=== PATIENT | female | born 1960 | race African-American/Black ===

== ENCOUNTER 2019-04-16 14:16 | Emergency (ER) | payer BC ==
[2019-04-16 14:43] VITALS: BMI 37.6
--- NOTE | 2019-04-16 14:47 | PDOC ---
Rapid Medical Evaluation Chief Complaint: Syncope/Near Syncope Time Seen by Provider: 04/16/19 14:40 Medical Evaluation: Allergies Allergy/AdvReac Type Severity Reaction Status Date / Time Penicillins Allergy Intermediate Hives Verified 04/16/19 14:38 Vital Signs Temp Pulse Resp BP Pulse Ox 97.8 F 100 H 18 120/74 100 04/16/19 14:38 04/16/19 14:38 04/16/19 14:38 04/16/19 14:38 04/16/19 14:38 04/16/19 14:46 I have performed a brief in-person evaluation of this patient. The patient presents with a chief complaint of:R arm pain after fall from bed yesterday. Was using ext yesterday but reported pain today. No head injury per parent Pertinent physical exam findings:NAD, no swelling/deformity on exam, FROMI to RUE I have ordered the following:nothing The patient will proceed to the ED for further evaluation Discharge Disposition - Diagnosis Arm injury Qualifiers: Encounter type: initial encounter Laterality: right Qualified Code(s): S49.91XA - Unspecified injury of right shoulder and upper arm, initial encounter - Referrals - Patient Instructions - Post Discharge Activity
--- NOTE | 2019-04-16 14:52 | PDOC ---
Rapid Medical Evaluation Chief Complaint: Syncope/Near Syncope Time Seen by Provider: 04/16/19 14:40 Medical Evaluation: Allergies Allergy/AdvReac Type Severity Reaction Status Date / Time Penicillins Allergy Intermediate Hives Verified 04/16/19 14:38 Vital Signs Temp Pulse Resp BP Pulse Ox 97.8 F 100 H 18 120/74 100 04/16/19 14:38 04/16/19 14:38 04/16/19 14:38 04/16/19 14:38 04/16/19 14:38 04/16/19 14:50 I have performed a brief in-person evaluation of this patient. The patient presents with a chief complaint of:dizziness w/ syncopal this am, no cp, sob, ledezma, n/v. No sig hx Pertinent physical exam findings:HR 100 I have ordered the following:ekg/labs/cxr The patient will proceed to the ED for further evaluation 04/16/19 14:53 Discharge Disposition - Diagnosis Syncope Qualifiers: Syncope type: unspecified Qualified Code(s): R55 - Syncope and collapse - Referrals - Patient Instructions - Post Discharge Activity
[2019-04-16 15:47] LABS: URINE APPEARANCE CLEAR; URINE BILIRUBIN NEGATIVE (NEGATIVE); URINE COLOR YELLOW; URINE GLUCOSE (UA) 3+ (NEGATIVE); URINE KETONE NEGATIVE (NEGATIVE); URINE LEUK ESTERASE NEGATIVE (NEGATIVE); URINE NITRITE NEGATIVE (NEGATIVE); URINE PROTEIN NEGATIVE (NEGATIVE); URINE UROBILINOGEN 0.2 mg/dL (0.2-1.0)
[2019-04-16 15:49] LABS: BASO % 0.8 % (0-2.0); EOS % 1.2 % (0-4.5); HEMATOCRIT 43.5 % (32.4-45.2); HEMOGLOBIN 14.3 GM/dL (10.7-15.3); LYMPH % 17.6 % (8-40); MCH 24.4 pg (25.7-33.7); MCHC 32.9 g/dl (32.0-36.0); MEAN CELL VOLUME 74.1 fl (80-96); MEAN PLT VOLUME 9.4 fl (7.5-11.1); MONO % 8.1 % (3.8-10.2); NEUT % 72.3 % (42.8-82.8); PLATELET COUNT 319 K/MM3 (134-434); RBC 5.87 M/mm3 (3.60-5.2); RDW 16.5 % (11.6-15.6)
--- NOTE | 2019-04-16 15:56 | PDOC ---
History of Present Illness - General Chief Complaint: Syncope/Near Syncope Stated Complaint: SENT BY PCP/SYNCOPE VOMITING Time Seen by Provider: 04/16/19 14:40 History Source: Patient Exam Limitations: No Limitations - History of Present Illness Initial Comments: 04/16/19 15:55 Nicole Corbin is a 58F with PMH HTN and NIDDM presenting with vertigo, nausea/vomiting, and syncope. Yesterday was otherwise healthy but in the late morning stood up and was suddenly very dizzy described as room-spinning, had multiple episodes of nausea and vomiting throughout the day. Denies fever/chills, diarrhea, chest pain, SOB. No abdominal pain, recent alcohol use, history of GB or pancreas disease. Denies urinary sx, but does say that she urinates more frequently due to the Januvia she takes for DM. Denies PABLO or vision changes, has never had symptoms like this before. This morning woke up and felt dizzy still, walked to bathroom and had syncopal episode where she fell into her closet and hit her head, woke up covered in vomit, went to bathroom to clean up and vomited more. Went to urgent care, referred to ED for eval dizziness and syncope. Allergy to PCN. On lisinopril and diltiazem for HTN, Januvia for DM PSH GB and . Past History - Past Medical History Allergies/Adverse Reactions: Allergies Allergy/AdvReac Type Severity Reaction Status Date / Time Penicillins Allergy Intermediate Hives Verified 04/16/19 14:38 Home Medications: Ambulatory Orders Fenofibrate Nanocrystallized [Tricor] 145 mg PO HS 01/05/12 Lisinopril [Prinivil] 5 mg PO DAILY 01/05/12 Diltiazem Cd [Cardizem Cd -] 120 mg PO HS 12/11/14 Loteprednol Etabonate [Lotemax] 5 ml OD BID 12/11/14 metFORMIN HCL [Metformin HCl] 1,000 mg PO DAILY 12/11/14 Meclizine HCl [Antivert -] 25 mg PO TID PRN 10 Days #30 tablet 04/16/19 Anemia: No Asthma: No Cancer: No Cardiac Disorders: No CVA: No COPD: No CHF: No Dementia: No Diabetes: Yes (NIDDM) GI Disorders: Yes (GERD) Disorders: No HTN: Yes Hypercholesterolemia: Yes Liver Disease: No Seizures: No Thyroid Disease: No - Surgical History Abdominal Surgery: No Appendectomy: No Cardiac Surgery: No Cholecystectomy: Yes Lung Surgery: No Neurologic Surgery: No Orthopedic Surgery: No - Psycho Social/Smoking Cessation Hx Smoking History: Never smoked Have you smoked in the past 12 months: No Information on smoking cessation initiated: No Hx Alcohol Use: No Drug/Substance Use Hx: No Substance Use Type: None Hx Substance Use Treatment: No Cardiac Specific PMH - Complaint Specific PMHX Pacemaker: No Review of Systems - Review of Systems Able to Perform ROS?: Yes Constitutional: No: Chills, Fever HEENTM: No: Blurred Vision, Double Vision, Difficulty Swallowing, Mouth Swelling Respiratory: No: Cough, Shortness of Breath, Wheezing, Productive cough Cardiac (ROS): Yes: Syncope. No: Chest Pain, Irregular Heart Rate, Lightheadedn ess, Palpitations ABD/GI: Yes: Nausea, Poor Appetite, Poor Fluid Intake, Vomiting. No: Constipated, Diarrhea : Yes: Frequency. No: Burning, Dysuria, Discharge, Flank Pain, Hematuria, Incontinence Musculoskeletal: No: Symptoms Reported Integumentary: No: Symptoms Reported Neurological: Yes: Dizziness. No: Headache, Numbness, Paresthesia, Seizure, Weakness, Unsteady Gait, Ataxia Endocrine: No: Symptoms Reported Hematologic/Lymphatic: No: Symptoms Reported All Other Systems: Reviewed and Negative *Physical Exam - Vital Signs Last Vital Signs Temp Pulse Resp BP Pulse Ox 98.2 F 95 H 18 122/58 L 97 04/16/19 19:15 04/16/19 19:15 04/16/19 19:15 04/16/19 19:15 04/16/19 19:15 - Physical Exam General Appearance: Yes: Nourished, Appropriately Dressed, Obese. No: Apparent Distress, Disheveled HEENT: positive: EOMI, DYLAN, Normal Voice, Symmetrical, Pharynx Normal. negative: Scleral Icterus (R), Scleral Icterus (L), Pharyngeal Erythema, Ton sillar Exudate, Tonsillar Erythema Neck: positive: Trachea midline, Normal Thyroid, Supple. negative: Tender, Rigid, Lymphadenopathy (R), Lymphadenopathy (L) Respiratory/Chest: positive: Lungs Clear, Normal Breath Sounds. negative: Chest Tender, Respiratory Distress, Accessory Muscle Use, Labored Respiration, Crackles, Rhonchi, Stridor, Wheezing Cardiovascular: positive: Regular Rhythm, Regular Rate. negative: Murmur Gastrointestinal/Abdominal: positive: Normal Bowel Sounds, Flat, Soft. nega tive: Tender, Organomegaly, Pulsatile Mass Musculoskeletal: positive: Normal Inspection, Vertebral Tenderness. negative: CVA Tenderness, CVA Tenderness (R), CVA Tenderness (L) Extremity: positive: Normal Capillary Refill, Normal Inspection, Normal Range of Motion. negative: Tender, Pelvis Stable, Coldness, Cyanosis, Pedal Edema, Swelling, Calf Tenderness Integumentary: positive: Normal Color, Dry, Warm. negative: Jaundice, Mottled Neurologic: positive: railroad conductor II-XII NML intact, Fully Oriented, Alert, Normal Mood/Affect, Normal Response, Motor Strength 5/5, Finger to Nose (normal), Other (gait normal forwards and backwards, [place]pike positive with reported vertigo and nystagmus to the left, HiNTS: no saccades with head impulse, horizontal nystagmus, no skew). negative: Numbness, Sensory Deficit ED Treatment Course - LABORATORY CBC & Chemistry Diagram: 04/16/19 15:15 - ADDITIONAL ORDERS Additional order review: Laboratory Results 04/16/19 04/16/19 15:15 15:10 Creatine Kinase 62 Troponin I < 0.02 Urine Color Yellow Urine Appearance Clear Urine pH 5.0 Ur Specific Petros 1.035 Urine Protein Negative Urine Glucose (UA) 3+ H Urine Ketones Negative Urine Blood Negative Urine Nitrite Negative Urine Bilirubin Negative Urine Urobilinogen 0.2 Ur Leukocyte Esterase Negative 04/16/19 15:15 RBC 5.87 H MCV 74.1 L MCHC 32.9 RDW 16.5 H MPV 9.4 Neutrophils % 72.3 Lymphocytes % 17.6 D Monocytes % 8.1 Eosinophils % 1.2 Basophils % 0.8 - RADIOLOGY Radiology Studies Ordered: Category Date Time Status HEAD CT WITHOUT CONTRAST [CT] Stat CT Scan 04/16/19 15:54 Completed CHEST X-RAY PORTABLE* [RAD] Stat Radiology 04/16/19 16:26 Completed - Medications Given in the ED: ED Medications Discontinued Medications Generic Name Dose Route Start Last Admin Trade Name Freq PRN Reason Stop Dose Admin Meclizine HCl 25 mg 04/16/19 16:53 04/16/19 17:30 Antivert - PO 04/16/19 16:54 25 mg ONCE ONE Administration Ondansetron HCl 4 mg 04/16/19 16:53 04/16/19 17:30 Zofran Injection IVPUSH 04/16/19 16:54 4 mg NOW ONE Administration Sodium Chloride 1,000 ml 04/16/19 16:53 04/16/19 17:30 Normal Saline - IV 04/16/19 16:54 1,000 ml ONCE ONE Administration Medical Decision Making - Medical Decision Making 04/16/19 19:54 Patient presents with new onset nausea and vomiting with vertigo and syncopal episode. Concerning for arrhythmia vs. ICH or lesions vs. dehydration vs. BPPV. Less likely to be sz or CVA given history. Positive [place] consistent with vertigo, but will eval for cardiac causes and CT head for eval intracranial pathology and trauma from fall today. Per NEXUS and [place] rules no need for C-spine imaging. ECG from urgent care shows sinus tachycardia with LAD, HR 103, QRS 86, QTc 458. VS in ED shows tachycardia, neurological exam no deficits. - CBC for eval anemia, infection - CP/ECG/CXR for eval arrhythmia and pulmonary disease - CT head for eval ICH or lesion - UA for eval UTI - 25mg meclizine for dizziness, Zofran and 1L NS for dehydration and nausea Labs notable for: - CBC WNL - CP WNL - UA WNL CT head no ICH or other pathology. Positive [place], negative CT, labs WNL, stable for discharge home with n euro f/u and meclizine. Discharge - Discharge Information Problems reviewed: Yes Clinical Impression/Diagnosis: Vertigo Syncope Qualifiers: Syncope type: unspecified Qualified Code(s): R55 - Syncope and collapse Condition: Stable Disposition: HOME - Admission No - Additional Discharge Information Prescriptions: Meclizine HCl [Antivert -] 25 mg PO TID PRN 10 Days #30 tablet PRN Reason: Nausea - Follow up/Referral Referrals: Yee Teran MD [Primary Care Provider] - Chao Miguel MD [Staff Physician] - - Patient Discharge Instructions Patient Printed Discharge Instructions: DI for Syncope in Adults (Fainting), DI for Vertigo Additional Instructions: Today you were evaluated for dizziness and a fainting episode. Your labs are all normal. Your CT scan shows no problems, Your dizziness and nausea and likely due to vertigo, which can be treated with a medication called meclizine which we have prescribed. You should see a neurologist for further evaluation. At home, stay hydrated and do not move from sitting to standing too quickly. If you experience more fainting spells, nausea, vomiting, abdominal pain, chest pain, difficulty breathing, or any other new or concerning symptoms, please return to the emergency room. - Post Discharge Activity Work/Back to School Note: Back to Work
[2019-04-16] MEDS ORDERED: MECLIZINE HCL 25 MG TABLET (FP) PO ONE (16:53)
[2019-04-16] MEDS ORDERED: ONDANSETRON 4 MG/2 ML VIAL IVPUSH ONE (16:53)
[2019-04-16] MEDS ORDERED: SODIUM CHLORIDE 0.9% 500 ML INFUS.BAG IV ONE (16:53)
--- NOTE | 2019-04-16 16:54 | PDOC ---
Documentation entered by Bennett Ruiz SCRIBE, acting as scribe for Kori Sullivan MD. Kori Sullivan MD: This documentation has been prepared by the Pl[employer]z Nirvannie, SCRIBE, under my direction and personally reviewed by me in its entirety. I confirm that the documentation accurately reflects all work, treatment, procedures, and medical decision making performed by me. Attending Attestation - Resident Resident Name: Mike Easton - ED Attending Attestation I have performed the following: I have examined & evaluated the patient, The case was reviewed & discussed with the resident, I agree w/resident's findings & plan, Exceptions are as noted - HPI HPI: 04/16/19 16:31 58 year old female with h/o HTN and NIDDM s/p episode of syncope this morning with vertigo, nausea,and vomiting. Patient was evaluated in urgent care prior to her arrival at which time she was advised to report to the ED for further evaluation. PT states she had vertigo yesterday with n/v. at 2 am awoke, felt vertiginous, and fell hitting head on wall. then blacked out. found vomit on herself when she awoke. no palpitations. no h/o prior vertigo. no cp no sob. today still feeling vertigionous does have h/o seasonal allergies. Allergies: Penicillins. Primary Care Physician: Dr. Teran 04/16/19 16:51 - Physicial Exam PE: 04/16/19 16:52 awake alert lungs clear bilat heart rrr no mrg abd soft nt nd ext wwp no edema no calf tenderness. nuero finger to nose normal. heel to bassett normal alt hand movement normal. gait normal. pos vito hallpike to left with horizontal n ystagmus. 5/5 al four ext. - Medical Decision Making 04/16/19 16:53 58 yo F with h/o DM here with vertigo, syncope. plan meclizine, fluids, zofran. reassess. ct head due to risk factors dm. however relatively normal cerebellar exam.
[2019-04-16] MEDS ORDERED: ONDANSETRON 4 MG/2 ML VIAL ONE (17:12)
[2019-04-16] MEDS ORDERED: MECLIZINE HCL 25 MG TABLET (FP) ONE (17:12)
[2019-04-16 19:35] VITALS: BP 122/58; PULSE 95; TEMP 98.2
--- NOTE | 2019-04-17 11:01 | EKG ---
Test Reason : Blood Pressure : / mmHG Vent. Rate : 103 BPM Atrial Rate : 103 BPM P-R Int : 146 ms QRS Dur : 072 ms QT Int : 332 ms P-R-T Axes : 055 -17 075 degrees QTc Int : 434 ms SINUS TACHYCARDIA ANTERIOR INFARCT , AGE UNDETERMINED ABNORMAL ECG WHEN COMPARED WITH ECG OF 11-DEC-2014 17:45, ANTERIOR INFARCT IS NOW PRESENT Confirmed by Levon Martines MD ([id number]) on 04/17/2019 11:00:56 AM Referred By: Confirmed By:Levon Martines MD
== END 2019-04-16 20:13 | disposition home or self-care (01) ==
LOC: JER 14:16
PROC: 3E033GC Introduction of Other Therapeutic Substance into Peripheral Vein, Percutaneous Approach (ICD-10-PCS; principal; 2019-04-16)
DX: R42 Dizziness and giddiness (principal); R55 Syncope and collapse; I10 Essential (primary) hypertension; E11.9 Type 2 diabetes mellitus without complications; Z79.84 Long term (current) use of oral hypoglycemic drugs; K21.9 Gastro-esophageal reflux disease without esophagitis; E78.00 Pure hypercholesterolemia, unspecified
CPT/HCPCS: 36415; 70450-TC; 71045-TC-FY; 81003; 82550; 84484; 85025; 93005; 93010; 99285-25